=== PATIENT | male | born 1930 | race Caucasian/White ===

== ENCOUNTER 2017-01-19 05:44 | Day surgery (SDC) ==
--- NOTE | 2017-01-15 09:24 | EKG Report ---
Test Performed on : 01/15/2017 09:10:29 AM Test Reason : PAT Blood Pressure : / mmHG Vent. Rate : 072 BPM Atrial Rate : 072 BPM P-R Int : 126 ms QRS Dur : 096 ms QT Int : 388 ms P-R-T Axes : 018 033 039 degrees QTc Int : 424 ms Normal sinus rhythm. with sinus arrhythmia. Normal ECG When compared with ECG of 27-MAY-2016 06:14, No significant change was found Confirmed by Ellis Kirk MD ([id number]) on 01/17/2017 12:31:29 PM
[2017-01-15 09:34] LABS: MANUAL DIFF NEEDED? NO
[2017-01-15 09:34] LABS: URINE MICRO REVIEW NEEDED? NO; URINE SOURCE CLEAN CATCH
[2017-01-15 09:40] LABS: BASO% 0.5 % (0.0-0.8); EOS# 0.24 X1000 (0.0-0.7); EOS% 2.7 % (0.0-10.0); HEMATOCRIT 42.3 % (42.0-52.0); HEMOGLOBIN 14.4 g/dL (14.0-18.0); IMM GRAN# 0.03 X1000 (0.0-0.04); IMM GRAN% 0.3 % (0.0-0.5); LYMPH# 2.36 X1000 (1.2-3.4); LYMPH% 26.7 % (20.5-51.1); MCH 29.3 PG (27-31); MONO# 0.92 X1000 (0.11-0.59); MONO% 10.4 % (1.7-9.3); MPV 9.6 FL (7.4-10.4); NEUT% 59.4 % (42.2-75.2); PLT 313 X1000 (130-400); RBC 4.92 XMIL (4.7-6.1)
[2017-01-15 09:43] LABS: BILIRUBIN URINE NEGATIVE (NEGATIVE); BLOOD URINE NEGATIVE (NEGATIVE); COLOR YELLOW; GLUCOSE URINE NEGATIVE (NEGATIVE); LEUKOCYTES URINE NEGATIVE (NEGATIVE); NITRITE URINE NEGATIVE (NEGATIVE); PH URINE 7.5; PROTEIN URINE NEGATIVE (NEGATIVE); SP GRAVITY URINE 1.014; TURBIDITY URINE CLEAR (CLEAR); UROBILINOGEN URINE NORMAL (NORMAL)
[2017-01-15 09:44] LABS: UR EPITHELIAL CELLS <10 /HPF (<10); URINE BACTERIA NEGATIVE /HPF; URINE RBC <10 /HPF (<10); URINE WBC <10 /HPF (<10)
[2017-01-15 10:06] LABS: AGAP 10; ALBUMIN 3.7 g/dL (3.5-5.0); ALKALINE PHOSPHATASE 73 U/L (32-122); BUN 20 mg/dL (8-22); CALCIUM 9.7 mg/dL (8.8-10.2); CHLORIDE 97 mmol/L (98-107); COSMO 272; GOT 20 U/L (10-34); GPT 15 U/L (10-44); POTASSIUM 4.1 mmol/L (3.5-5.1); SODIUM 134 mmol/L (136-145); TCO2 27 mmol/L (25-35); TOTAL BILIRUBIN 0.44 mg/dL (0.20-1.00); TOTAL PROTEIN 7.6 g/dL (6.3-8.3)
--- NOTE | 2017-01-15 10:06 | Diag Imaging Result Document ---
PROCEDURE NAME: CHEST-2 VIEWS - 01/15/2017 FRONTAL AND LATERAL CHEST, TWO VIEWS: COMPARISON: 05/27/2016. FINDINGS: The lungs are well expanded. The heart is not enlarged. The pulmonary vessels are small. No pneumonia. No pleural effusions. There is a small hiatal hernia. This was present on the prior exam and is unchanged. IMPRESSION: Stable chest.
[2017-01-19] MEDS ORDERED: LR 1,000 ML ONE ×2 (06:05→07:36)
[2017-01-19] MEDS ORDERED: KEFZOL 1 GM/D5W 50 ML ONE (06:05)
[2017-01-19] MEDS ORDERED: REGLAN ONE (06:05)
[2017-01-19] MEDS ORDERED: PEPCID ONE (06:05)
[2017-01-19] MEDS ORDERED: SODIUM CHLORIDE 0.9% ONE (07:36)
[2017-01-19] MEDS ORDERED: MARCAINE 0.25% PF/EPI 1:200,000 ONE (07:36)
[2017-01-19] MEDS: MORPHINE ONE ×2 (08:52→08:59)
[2017-01-19] MEDS ORDERED: DIPRIVAN 1% ONE (08:59)
[2017-01-19] MEDS ORDERED: FENTANYL ONE (09:00)
[2017-01-19] MEDS ORDERED: D5 1/2 NS 1,000 ML ONE (09:12)
--- NOTE | 2017-01-19 09:51 | OPERATIVE NOTE ---
PROCEDURE DATE: 01/19/2017 PREOPERATIVE DIAGNOSES: 1. Cholecystitis. 2. Cholelithiasis. POSTOPERATIVE DIAGNOSES: 1. Cholecystitis. 2. Cholelithiasis. PROCEDURE: Laparoscopic cholecystectomy with cholangiogram. DESCRIPTION OF PROCEDURE: The patient was brought to the operating room. After satisfactory induction of IV and endotracheal anesthesia, athrombic TEDs were placed. His abdomen was broadly prepped and draped in the appropriate manner for laparoscopy. Initially, the infraumbilical area was infiltrated with 0.25% Marcaine with epinephrine. Dissection was taken sharply down through skin and subcutaneous tissue. The fascia was tacked with 0 Surgilon and incised. Under direct visualization, a Brent trocar was placed. The abdomen was insufflated to 3-1/2 L of carbon dioxide. Again, after infiltration with Marcaine and epinephrine, one 10 and two 5 mm trocars were placed across the right epigastrium. The patient was repositioned, the gallbladder was grasped and retracted superiorly. The hilar structures were dissected. Cystic duct cholangiogram revealed good flow of contrast into the duodenum with no obstruction. The catheter was removed and the duct was doubly clipped and divided. The cystic artery was subsequently dissected out, doubly clipped and divided as well. The gallbladder was dissected from the liver bed with the use of the monopolar scissors. On completion, the gallbladder was freed up, placed in an EndoCatch bag and removed. There was a couple of stones that had spilled that were likewise plucked and placed in the EndoCatch bag. The gallbladder was removed through the infraumbilical incision. Reinspection of the liver bed revealed small bleeding points that were controlled by electrocautery. Subhepatic and subphrenic spaces were aspirated free of the small amount of bile and blood. A small piece of Surgicel gauze was placed in the gallbladder fossa. The abdomen was subsequently deflated and the trocars were removed. The subumbilical incision underwent fascial closures of 0 Surgilon. All skin incisions were closed with subcuticular 4-0 Vicryl. Steri- Strips, Telfa, and OpSite were applied. The patient was awakened and extubated in the operating room and transferred to recovery. ESTIMATED BLOOD LOSS: About 10 mL.
[2017-01-19] MEDS ORDERED: ZOFRAN ONE (10:08)
[2017-01-19] MEDS ORDERED: NEOSTIGMINE ONE (10:08)
[2017-01-19] MEDS ORDERED: QUELICIN (DOSE) ONE (10:09)
[2017-01-19] MEDS ORDERED: DECADRON ONE (10:09)
[2017-01-19] MEDS ORDERED: ZEMURON ONE (10:09)
[2017-01-19] MEDS ORDERED: ROBINUL ONE (10:09)
[2017-01-19] MEDS ORDERED: XYLOCAINE-MPF 2% ONE (10:09)
--- NOTE | 2017-01-19 12:15 | Diag Imaging Result Document ---
PROCEDURE NAME: OPERATIVE CHOLANGIOGRAM - 01/19/2017 INTRAOPERATIVE CHOLANGIOGRAM: COMPARISON: None available. FINDINGS: A single fluoroscopic image of the opacified common bile duct was provided, which was performed intraoperatively by Dr. Juanjo Goldman. The common hepatic duct is opacified as well and is unremarkable. There is mild smooth narrowing of the proximal and mid portion of the common bile duct. No definite filling defects are identified. There is normal passage of contrast into small bowel. IMPRESSION: As above. Please correlate with live fluoroscopic imaging.
[2017-01-19] MEDS ORDERED: ZOFRAN IV PRN (12:57)
[2017-01-19] MEDS ORDERED: MORPHINE IV PRN (13:09)
[2017-01-19] MEDS: D5 1/2 NS 1,000 ML IV SCH ×2 (13:16→20:00)
[2017-01-19] MEDS: NORCO-10 PO PRN (15:52)
[2017-01-19] MEDS: KEFZOL 1 GM/D5W 50 ML IV SCH (15:53)
[2017-01-19] MEDS ORDERED: FLOMAX PO SCH (18:30)
[2017-01-20] MEDS: KEFZOL 1 GM/D5W 50 ML IV SCH ×2 (00:13→08:47)
[2017-01-20] MEDS: NORCO-10 PO PRN ×2 (00:13→08:50)
[2017-01-20] MEDS: PERIDEX MT SCH ×2 (00:14→08:48)
[2017-01-20] MEDS: D5 1/2 NS 1,000 ML IV SCH ×2 (06:01)
[2017-01-20] MEDS ORDERED: PRILOSEC PO SCH (07:00)
--- NOTE | 2017-01-20 07:30 | EKG Report ---
Test Performed on : 01/20/2017 06:14:20 AM Test Reason : post-op Blood Pressure : / mmHG Vent. Rate : 066 BPM Atrial Rate : 066 BPM P-R Int : 188 ms QRS Dur : 092 ms QT Int : 420 ms P-R-T Axes : 043 009 008 degrees QTc Int : 440 ms Normal sinus rhythm. Normal ECG When compared with ECG of 15-JAN-2017 09:10, No significant change was found Confirmed by Ellis Kirk MD ([id number]) on 01/21/2017 9:17:45 PM
[2017-01-20 08:02] VITALS: BP 124/65
[2017-01-20] MEDS ORDERED: PRINIVIL PO SCH (09:00)
== END 2017-01-20 10:30 | disposition home or self-care (01) ==
LOC: OPS 05:44 → 4N 11:37 → UNDOADMOB 11:37 → OPS 01-20 10:30 → UNDODISOB 01-20 10:30
PROVIDERS: ATTEND Surgery
DX: K80.10 Calculus of gallbladder with chronic cholecystitis without obstruction (principal); I10 Essential (primary) hypertension; K21.9 Gastro-esophageal reflux disease without esophagitis; Z23 Encounter for immunization
CPT/HCPCS: 71020; 74300; 80053; 81001; 85025; 88304; 93005; 93010; 94761; 94799; J0330; J0690; J1100; J2270; J2405; J3010; J7120; Q9966; J2710